=== PATIENT | male | born 2000 | race Caucasian/White ===

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

== ENCOUNTER → 2023-08-23 15:30 | Outpatient (BNVA) | payer MEDICAID, SELFPAY | PROVIDERS: PCP Nurse Practitioner; Visit Provider Nurse Practitioner | DX: Z13.6 Encounter for screening for cardiovascular disorders (principal) | CPT/HCPCS: 80053; 80061; 81000; 85025 ==

== ENCOUNTER 2023-08-27 23:27 | Emergency (ER) | payer SELFPAY ==
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
[2023-08-27 23:51] VITALS: BP 170/100; PULSE 90; RESP 19; TEMP 36.6; O2SAT 100; BMI 31.0
[2023-08-27 23:57] VITALS: BP 172/101; PULSE 80; RESP 20; O2SAT 99
[2023-08-28 00:27] VITALS: PULSE 84; RESP 22; O2SAT 95
[2023-08-28 01:00] VITALS: BP 168/90; PULSE 87; RESP 22; O2SAT 98
[2023-08-28 01:55] VITALS: BP 159/90; PULSE 88; RESP 17; O2SAT 90
== END 2023-08-28 01:44 | disposition home or self-care (01) ==
PROVIDERS: Emergency Provider Emergency Medicine; PCP Nurse Practitioner
DX: S01.21XA Laceration without foreign body of nose, initial encounter (principal); S00.03XA Contusion of scalp, initial encounter; Y04.2XXA Assault by strike against or bumped into by another person, initial encounter
CPT/HCPCS: 12011; 70450; 70486; 72125; 99284